=== PATIENT | female | born 1960 | race Caucasian/White ===

== ENCOUNTER → 2022-03-19 | Outpatient (CLI) | payer BC ==
--- NOTE | 2022-03-19 11:58 | Diagnostic Imaging Report ---
PROCEDURE: CT urinary tract, rule out kidney stone. TECHNIQUE: Multiple contiguous axial images were obtained through the abdomen and pelvis without the use of intravenous contrast. Auto Exposure Controls were utilized during the CT exam to meet ALARA standards for radiation dose reduction. INDICATION: Left flank pain. FINDINGS: There is mild right basilar atelectasis and/or pneumonitis involving middle and lower lobes. There is elevation of the right hemidiaphragm. Within the left upper quadrant, there is edema and inflammation in the fat adjacent to the greater curvature of the stomach and extending along the splenic flexure of the colon adjacent to the pancreatic tail reaching the left anterior renal fascia. There is no organized fluid collection and no pneumoperitoneum is identified. Remainder of the pancreas, adrenal glands, spleen, stomach and gallbladder are unremarkable. There are several hypodense regions within the left kidney including an approximately 2.5 cm exophytic nodule along the inferior pole with intermediate density, likely representing a mildly complicated cyst. There is no evidence of urinary tract calculus or obstruction. There is mild aortoiliac atherosclerotic calcification. No free fluid is seen within the abdomen or pelvis. Unopacified bladder is incompletely distended without other evidence of abnormality. 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 IMPRESSION: Nonspecific inflammation localized to the left upper quadrant abdominal fat adjacent to greater curvature of the stomach, splenic flexure of the colon, and tail of pancreas. This may represent focal inflammation from one of these sites, however no abscess or evidence of hollow viscus perforation is identified. Incidental note is made of intermediate density 2.5 cm cyst in the lower pole of the left kidney which could be confirmed with ultrasonography, if indicated. 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 Dictated by: Dictated on workstation # [id number]
== END ==
LOC: RAD 11:08
PROVIDERS: ATTEND Family Medicine
DX: N20.0 Calculus of kidney (principal); M48.04 Spinal stenosis, thoracic region
CPT/HCPCS: 74176